=== PATIENT | male | born 1945 | race Caucasian/White ===

== ENCOUNTER 2016-05-21 10:08 | Emergency (ER) | payer MEDICARE, OTHER ==
[~2016-05-21] VITALS: Ht 177.8 cm; Wt 94.8 kg
[2016-05-21] MEDS ORDERED: NORVASC5 MG PO (11:08)
[2016-05-21] MEDS ORDERED: LIPITOR20 MG PO (11:09)
[2016-05-21] MEDS ORDERED: REFRESH PLUS1 EACH EYEBOTH (11:10)
[2016-05-21] MEDS ORDERED: RESTASIS1 EACH EYEBOTH (11:11)
[2016-05-21] MEDS ORDERED: CARDURA8 MG PO (11:11)
[2016-05-21] MEDS ORDERED: HYDROCHLOROTHIA25 MG PO (11:12)
[2016-05-21] MEDS ORDERED: VASOTEC20 MG PO (11:12)
[2016-05-21] MEDS ORDERED: [UNRECOGNIZED DRUG - OTHER] EYEBOTH (11:14)
[2016-05-21] MEDS ORDERED: GLUCOPHAGE1000 MG PO (11:15)
[2016-05-21] MEDS ORDERED: LOPRESSOR100 MG PO (11:15)
[2016-05-21] MEDS ORDERED: MOBIC7.5 MG PO (11:15)
[2016-05-21] MEDS ORDERED: PRILOSEC20 MG PO (11:16)
[2016-05-21] MEDS ORDERED: OXYTROL TOP (11:16)
[2016-05-21] MEDS ORDERED: TRAZODONE HCL100 MG PO (11:17)
[2016-05-21] MEDS ORDERED: ASPIRIN325 MG PO (11:18)
[2016-05-21] MEDS ORDERED: CEROVITE ADVANC1 TAB PO (11:19)
== END 2016-05-21 11:30 | disposition short-term general hospital (02) ==
LOC: ER 10:08
PROC: 0PSVXZZ Reposition Left Finger Phalanx, External Approach (ICD-10-PCS; principal; 2016-05-21)
DX: S62.617A Displaced fracture of proximal phalanx of left little finger, initial encounter for closed fracture (principal); W18.30XA Fall on same level, unspecified, initial encounter